=== PATIENT | male | born 1995 | race Caucasian/White ===

== ENCOUNTER 2017-01-26 05:26 | Observation (INO) | payer BC ==
[~2017-01-26] VITALS: Ht 190.5 cm; Wt 77.1 kg
[2017-01-26] VITALS (10 sets, daily range): BP systolic 120–140; BP diastolic 68–87
--- NOTE | ~2017-01-26 | O ---
[facility] [place] [address] OPERATIVE REPORT Name: RITU ARMENTA Room #: 542-P [facility] M.R.#: [id number] Admission: 01/26/17 Attend Phys: Dino Kirby DDS Discharge: Date of : 89 Report #: [id number] THIS REPORT FOR: //name// CC: Dino CR DATE OF SERVICE: 01/26/2017 PREOPERATIVE DIAGNOSIS: Maxillary and mandibular skeletal deformities. POSTOPERATIVE DIAGNOSIS: Maxillary and mandibular skeletal deformities. PROCEDURES: 1. Maxillary repeat LeFort 1 osteotomy. 2. Mandibular bilateral sagittal osteotomies. 3. Rigid skeletal fixation. SURGEON: Dino Kirby DDS. ZOOLOGY PROFESSOR: SHAMIR Samson. ANESTHESIA: General via nasal endotracheal. INDICATIONS: This is a 21-year-old male who was referred to our office and evaluated for skeletal deformities and facial deformities involving the upper and lower jaws, resulting in difficulty chewing, some difficulty with speech and some jaw discomfort. Evaluation was done using cast models of the jaws, supplementary x-ray evaluation and clinical evaluation. He did undergo presurgical orthodontic treatment and he was brought to the operating room for surgical correction definitively of the skeletal deformity. DESCRIPTION OF PROCEDURE: After satisfactory general nasal endotracheal anesthesia, the patient in supine position, hypopharyngeal pack was placed. Approximately 16 mL of 0.25% Marcaine in 1:200,000 epinephrine was injected intraorally. The external face was prepped and draped in the usual manner for sterile procedure. A mucoperiosteal incision was then made over the each mandibular ramus region approximately 2-3 cm in length. Periosteum elevated off the lingual aspect of the mandible, identifying and protecting the inferior alveolar nerve, as it entered the lingula and then periosteum stripped off the lateral aspect of the posterior portion of the body of the mandible. A bone cut was then made superior to the lingula, again protecting the nerve and then a vertical bone cut made between the first and second molar regions through the inferior border of the mandible and then a sagittal cut made connecting these 2 cuts across the top of the mandible. This was done bilaterally and then attention turned to the maxillary osteotomy. Mucoperiosteal incision made with electrocautery from the right mandibular first molar region to the left [address] [address] OPERATIVE REPORT Name: RITU ARMENTA Room #: 542-P [facility] Raymon Hernandez#: [id number] Admission: 01/26/17 Attend Phys: Dino Kirby DDS Discharge: Date of : 89 Report #: [id number] mandibular first molar region, approximately 5-6 mm above the attached gingiva. Periosteum then elevated tunneling posteriorly back to the pterygoid plates bilaterally and careful dissection to elevate the nasal mucosa off the lateral nasal wall floor of the nose, protecting the nasal mucosa. Reference holes were placed above the cuspid and first molar teeth. Then, a bone cut made from the piriform aperture posteriorly back to the pterygoid plates above the roots of the teeth bilaterally. A thin bur was used to start a vertical bone cut between the cuspid and first bicuspid on either side and then a thin osteotome tapped palatally with care not to go through the palatal mucosa to connect this cut to segmentalize the maxilla in 3 pieces. A large pterygoid chisel was then used to separate the pterygoid plates bilaterally. A thin osteotome to use to separate the lateral nasal wall from the hard palate and then a vomer chisel to use to separate the vomer bone from the hard palate. At this point, the maxilla was down fractured without difficulty. A thin fissure bur was used to make a cut in the hard palate in a paramedian fashion meeting in the anterior, with again care not to go through the palatal mucosa. This allowed the maxilla to be segmentalized into than 3 pieces. Maxillary teeth were then brought into fixation into a prefabricated surgical splint and then brought into maxillomandibular fixation with an intermediate splint using four 24 gauge wires and then auto-rotating the mandible superiorly. Bony interferences were removed with a rongeur and bone bur until the new anatomic position was achieved. Once that was achieved, four KLS bone plates, 2 L-shaped plates in the anterior piriform rim region and those did span the segmentalized osteotomies and then an L-shaped plate in the maxillary left area and a straight plate in the maxillary right area. All secured with 1.5-mm KLS screws. Once the rigid fixation was achieved, the intermaxillary fixation wires were released. The mandible was found freely up into the splint, indicating good position and attention was turned back to the mandibular osteotomies. Each of the mandibular osteotomies was completed without difficulty by introducing a thin osteotome superiorly beginning the sagittal split in this region and then moving anterior to posterior along the inferior border. There were no complications with the splint and the nerve required no dissection on either side. The muscular sling was then stripped off the inferior border at the condylar segment and then the teeth brought back into maxillomandibular fixation with 24-gauge wires times 4 into the final surgical splint. A segment of the condylar segment on the anterior portion was removed so the segments could lay passively and then three KLS 2.0 screws were used in a bicortical fashion to rigidly fixate the mandible on either side. At the completion of this, the fixation wires were released. Mandible swung freely into the splint, indicating good positioning in. Wounds were thoroughly irrigated and suctioned. Then, a Trek suture was placed with a 3-0 Dexon and then the mucosal wounds closed with a 3-0 chromic gut continuous horizontal mattress suture. Blood loss approximately 450 mL and replaced with 1800 mL crystalloid. There were no intraoperative complications, and the patient was sent to the recovery room in satisfactory condition. [address] [address] OPERATIVE REPORT Name: RITU ARMENTA Room #: 542-P [facility] Mary#: [id number] Admission: 01/26/17 Attend Phys: Dino Kirby DDS Discharge: Date of : 95 Report #: [id number] An hypopharyngeal pack was placed prior to the surgery and removed prior to the patient leaving the operating room. By: [id number] Dino Kirby DDS /nt
[~2017-01-26 05:26] MED LIST: CLARITIN10 MG PO
[2017-01-27 03:26] VITALS: BP 120/63
[2017-01-27 07:52] VITALS: BP 120/63
[2017-01-27 08:04] VITALS: BP 121/64
== END 2017-01-27 13:00 | disposition home or self-care (01) ==
LOC: OR 05:26 → TBA 05:26 → OR 13:06 → 5S 14:52
DX: M26.213 Malocclusion, Angle's class III (principal); M26.02 Maxillary hypoplasia; M26.03 Mandibular hyperplasia
CPT/HCPCS: 50010; 50101; 50386; 50398; 53023; 55106; 55430; 56526; 56805; 62110; 62900; 70005